=== PATIENT | male | born 2000 | race Two or more races ===

== ENCOUNTER 2022-09-19 15:34 | Emergency (ER) | payer OTHER ==
[~2022-09-19] VITALS: Ht 175.3 cm; Wt 95.0 kg
[2022-09-19 16:27] VITALS: BP 146/96
[2022-09-19] MEDS ORDERED: MUPI2CRE17 EX (16:47)
[2022-09-19] MEDS ORDERED: CEPH-510 PO (16:47)
== END 2022-09-19 16:50 | disposition home or self-care (01) ==
LOC: ER 15:34
DX: L73.9 Follicular disorder, unspecified (principal)